=== PATIENT | female | born 1990 | race Caucasian/White ===

== ENCOUNTER 2023-04-06 13:20 | Emergency (ER) | payer MEDICAID, OTHER ==
[~2023-04-06] VITALS: Ht 172.7 cm; Wt 64.6 kg
[2023-04-06 13:32] VITALS: BP 119/90; PULSE 107; RESP 16; TEMP 97.9; O2SAT 99
[2023-04-06] MEDS ORDERED: methadone 10mg tablet PO ONE ×3 (13:45→15:35)
== END 2023-04-06 15:39 | disposition home or self-care (01) ==
LOC: ER 13:20
DX: F11.10 Opioid abuse, uncomplicated (principal); Z76.0 Encounter for issue of repeat prescription; G89.29 Other chronic pain; M54.9 Dorsalgia, unspecified; F15.10 Other stimulant abuse, uncomplicated; Z88.8 Allergy status to other drugs, medicaments and biological substances; Z91.040 Latex allergy status
CPT/HCPCS: 99283

== ENCOUNTER 2023-04-23 12:33 | Emergency (ER) | payer MEDICAID ==
[~2023-04-23] VITALS: Ht 172.7 cm; Wt 65.2 kg
[2023-04-23 12:43] VITALS: BP 108/78; PULSE 92; RESP 16; TEMP 98.4; O2SAT 100
[2023-04-23] MEDS ORDERED: methadone 10mg tablet PO ONE ×3 (13:20)
== END 2023-04-23 14:45 | disposition home or self-care (01) ==
LOC: ER 12:33
DX: F11.20 Opioid dependence, uncomplicated (principal); F15.90 Other stimulant use, unspecified, uncomplicated; Z88.8 Allergy status to other drugs, medicaments and biological substances
CPT/HCPCS: 99284

== ENCOUNTER 2023-04-30 11:40 | Emergency (ER) | payer MEDICAID ==
[~2023-04-30] VITALS: Ht 172.7 cm; Wt 69.4 kg
[2023-04-30 11:44] VITALS: BP 112/71; PULSE 106; RESP 16; TEMP 98.3; O2SAT 98
== END 2023-04-30 13:10 | disposition home or self-care (01) ==
LOC: ER 11:42
DX: F11.10 Opioid abuse, uncomplicated (principal); G89.29 Other chronic pain; M54.9 Dorsalgia, unspecified; Z88.8 Allergy status to other drugs, medicaments and biological substances; Z79.899 Other long term (current) drug therapy
CPT/HCPCS: 99281